=== PATIENT | male | born 1990 | race Caucasian/White ===

== ENCOUNTER 2016-12-01 16:11 | Emergency (ER) | payer OTHER ==
[2016-12-01 16:26] VITALS: BP 151/96
[2016-12-01] MEDS ORDERED: Tetan/Diph/Pertus SYR(Tdap)* 0.5 ML SYR(BOOSTRIX) use SYR IM ONE (16:49)
[2016-12-01] MEDS ORDERED: Lidocaine 2% PF * 5 ML VIAL INJ ONE (17:01)
--- NOTE | 2016-12-01 18:39 | UC ---
Mary Ann Garcia Janilya, scribed for Juanita Cruz DO on 12/01/16 at 1645 . Laceration HPI - HPI Summary HPI Summary: Patient is a 26 year old male who came in to [facility] presenting w/ a laceration of R 5th finger he sustained today at 1500. Pt states he was washing glass dishware , that broke and cut his finger. He states the dishware was clean. He attempted to glue the cut area w/o any relief. Pt does not remember the last time he got a tetanus shot. He thinks it may have been more than 5 years. - History Of Current Complaint Chief Complaint: UCUpperExtremity Stated Complaint: FINGER LAC Hx Obtained From: Patient Laceration Location: Finger - R 5th finger Onset/Duration: Sudden Onset, Lasting Hours, Still Present Severity: Moderate Aggravating Factors: Nothing - Allergies/Home Medications Allergies/Adverse Reactions: Allergies Allergy/AdvReac Type Severity Reaction Status Date / Time No Known Allergies Allergy Verified 12/01/16 16:26 Home Medications: Home Medications Fexofenadine (NF) [Cheli (NF)] 60 mg PO 12/01/16 [History] Fluticasone Propionate (Nasal) [Flonase Allergy Relief] 50 mcg NA 12/01/16 [ History] PMH/Surg Hx/FS Hx/Imm Hx Previously Healthy: Yes Neurological History Of: Denies: Dementia - Surgical History Surgical History: None - Family History Known Family History: Positive: Cardiac Disease - [place] - father, Hypertension - father, Other - [place] - aunt Negative: Diabetes - Social History Occupation: Student Alcohol Use: Occasionally Substance Use Type: None Smoking Status (MU): Never Smoked Tobacco Review of Systems Constitutional: Negative Skin: Other - laceration of R 5th finger Eyes: Negative ENT: Negative Respiratory: Negative Cardiovascular: Negative Gastrointestinal: Negative Genitourinary: Negative Motor: Negative Neurovascular: Negative Musculoskeletal: Negative Neurological: Negative Psychological: Negative All Other Systems Reviewed And Are Negative: Yes Physical Exam Triage Information Reviewed: Yes Appearance: Well-Appearing, No Pain Distress, Well-Nourished Vital Signs: Initial Vital Signs Temp 98.8 F 12/01/16 16:22 Pulse 62 12/01/16 16:22 Resp 18 12/01/16 16:22 BP 151/96 12/01/16 16:22 Pulse Ox 100 12/01/16 16:22 Vital Signs Reviewed: Yes Eyes: Positive: Conjunctiva Clear. Negative: Discharge ENT: Positive: Hearing grossly normal. Negative: Muffled/hoarse voice Neck exam: Normal Neck: Positive: Supple Respiratory: Positive: Lungs clear, Normal breath sounds, No respiratory distress, No accessory muscle use Cardiovascular: Positive: RRR, No Murmur Musculoskeletal Exam: Normal Neurological: Positive: Alert, Muscle Tone Normal Psychological Exam: Normal Psychological: Positive: Age Appropriate Behavior Skin Exam: Normal - warm, dry, normal color, Other - 3.5 cm flap lesion laceration Laceration Repair - Laceration Repair 1 Description: Linear Laceration Size After Repair: Length (cm) - 3.5 cm, Width (mm) - 1, Depth (mm) - 1 Type Injection: Local Anesthesia Used: 2.0% Lido Closure Material: Sutures Closure Method: Single Layer Suture Of: Skin - 7 sutures Suture Type: Nylon - 4 Nylon Laceration Course/Dx - Differential Dx - Laceration/Wound Differental Diagnoses: Abrasion, Avulsion, Laceration Provider Diagnoses: finger laceration repair Discharge - Discharge Plan Condition: Stable Disposition: HOME Patient Education Materials: Finger Laceration (ED) Referrals: [facility] [Primary Care Provider] - (FIND OUT WHEN YOUR LAST TETANUS SHOT WAS GIVEN.) Additional Instructions: REMEMBER TO FIND OUT WHEN YOUR LAST TETANUS SHOT WAS GIVEN. IF IT WAS MORE THAN 5 YEARS AGO, YOU SHOULD GET ANOTHER IN THE NEXT COUPLE OF DAYS. FOLLOW UP FOLLOW UP HERE FOR SUTURE REMOVAL IN 7 DAYS. The documentation as recorded by the Mary Ann comer Janilya accurately reflects the service I personally performed and the decisions made by , Juanita Cruz DO.
== END 2016-12-01 18:10 | disposition home or self-care (01) ==
LOC: UCEAST 16:11
DX: S61.214A Laceration without foreign body of right ring finger without damage to nail, initial encounter (principal); W25.XXXA Contact with sharp glass, initial encounter
CPT/HCPCS: 12002; 90715; 99201; G0463

== ENCOUNTER 2016-12-08 08:04 | Emergency (ER) | payer OTHER ==
[2016-12-08 08:16] VITALS: BP 142/79
--- NOTE | 2016-12-08 08:38 | UC ---
HPI Wound/Suture Re-check - HPI Summary HPI Summary: Was seen here 7 days ago for laceration to R 5th finger from glass breaking while washing dishes. Had 8 sutures placed, returns for removal. Denies pain, numbness, redness, drainage or other problems. - History Of Current Complaint Chief Complaint: Osman Stated Complaint: SUTURE REMOVAL Time Seen by Provider: 12/08/16 08:14 Hx Obtained From: Patient Onset/Duration: Sudden Onset Severity: Mild Surgery Date: 12/01/16 - Allergies/Home Medications Allergies/Adverse Reactions: Allergies Allergy/AdvReac Type Severity Reaction Status Date / Time No Known Allergies Allergy Verified 12/08/16 08:17 PMH/Surg Hx/FS Hx/Imm Hx Previously Healthy: Yes Neurological History Of: Denies: Dementia - Surgical History Surgical History: None - Family History Known Family History: Positive: Cardiac Disease - [place] - father, Hypertension - father, Other - MS - aunt Negative: Diabetes - Social History Occupation: Student Alcohol Use: Occasionally Substance Use Type: None Smoking Status (MU): Never Smoked Tobacco Review of Systems Constitutional: Negative Skin: Other - sutures Eyes: Negative ENT: Negative Respiratory: Negative Cardiovascular: Negative Gastrointestinal: Negative Genitourinary: Negative Motor: Negative Neurovascular: Negative Musculoskeletal: Negative Neurological: Negative Psychological: Negative All Other Systems Reviewed And Are Negative: Yes Physical Exam Triage Information Reviewed: Yes Appearance: Well-Appearing, No Pain Distress, Well-Nourished Vital Signs: Initial Vital Signs Temp 98.1 F 12/08/16 08:14 Pulse 69 12/08/16 08:14 Resp 16 12/08/16 08:14 BP 142/79 12/08/16 08:14 Pulse Ox 99 12/08/16 08:14 Vital Signs Reviewed: Yes Eye Exam: Normal Eyes: Positive: Conjunctiva Clear ENT Exam: Normal ENT: Positive: Normal ENT inspection, Hearing grossly normal, Pharynx normal, TMs normal Dental Exam: Normal Neck exam: Normal Neck: Positive: Supple, Nontender, No Lymphadenopathy Respiratory Exam: Normal Respiratory: Positive: Chest non-tender, Lungs clear, Normal breath sounds, No respiratory distress, No accessory muscle use Cardiovascular Exam: Normal Cardiovascular: Positive: RRR, No Murmur Musculoskeletal Exam: Normal Neurological Exam: Normal Neurological: Positive: Alert Psychological Exam: Normal Skin Exam: Other - 8 sutures removed from R 5th finger on exam, pt bipin well Course/Dx - Differential Dx - Laceration/Wound Provider Diagnoses: R 5th finger suture removal Discharge - Discharge Plan Condition: Stable Disposition: HOME Patient Education Materials: Stitches Removal (ED) Referrals: [facility] [Primary Care Provider] - Additional Instructions: Come back if you have new or worrisome symptoms, or if the wound opens back up.
== END 2016-12-08 08:39 | disposition home or self-care (01) ==
LOC: UCEAST 08:04
DX: Z48.02 Encounter for removal of sutures (principal)